=== PATIENT | female | born 1950 | race Caucasian/White ===

== ENCOUNTER 2022-07-20 13:13 | Day surgery (SDC) | payer MEDICARE, OTHER ==
[~2022-07-20] VITALS: Ht 160 cm; Wt 66.3 kg
[~2022-07-20 13:13] MED LIST: ASPI-989 PO; ASPIRIN 81 MG CHEWABLE TABLET ONE; DIAZEPAM 5 MG TABLET ONE; DiphenhydrAMINE HCL 50 MG CAPSULE ONE; LISI-894 PO; METF-1211 PO; SODIUM CHLORIDE 0.9% 1,000 ML IV ONE; SODIUM CHLORIDE 0.9% 1,000 ML ONE
[2022-07-20] MEDS ORDERED: DiphenhydrAMINE HCL 50 MG CAPSULE PO ONE (14:00)
[2022-07-20] MEDS ORDERED: DIAZEPAM 5 MG TABLET PO ONE (14:00)
[2022-07-20] MEDS ORDERED: ASPIRIN 81 MG CHEWABLE TABLET PO ONE (14:00)
[2022-07-20 14:17] LABS: GLUCOMETER DEV NAME(LOC) SDS.; GLUCOSE,POINT OF CARE 73 MG/DL (70-110)
[2022-07-20] MEDS ORDERED: SODIUM BICARBONATE 50 MEQ/50 ML VIAL ONE (15:00)
[2022-07-20] MEDS ORDERED: IOHEXOL 300 MG/ML 100 ML VIAL ONE (15:00)
[2022-07-20] MEDS ORDERED: MIDAZOLAM HCL 2 MG/2 ML VIAL ONE (15:00)
[2022-07-20] MEDS ORDERED: FentaNYL CITRATE PF 100 MCG/2 ML VIAL ONE (15:00)
[2022-07-20] MEDS ORDERED: DiphenhydrAMINE HCL 50 MG/ML VIAL ONE ×2 (15:00→15:07)
[2022-07-20] MEDS ORDERED: LIDOCAINE/PF 1% 30 ML VIAL ONE (15:00)
[2022-07-20] MEDS ORDERED: IOHEXOL 300 MG/ML 100 ML VIAL IARTER ONE (15:15)
[2022-07-20] MEDS ORDERED: DiphenhydrAMINE HCL 50 MG/ML VIAL IVP ONE (15:15)
[2022-07-20] MEDS ORDERED: FentaNYL CITRATE PF 100 MCG/2 ML VIAL IVP ONE (15:15)
[2022-07-20] MEDS ORDERED: HEPARIN SODIUM 1000 UNITS/NS 1,000 ML IARTER ONE (15:15)
[2022-07-20] MEDS ORDERED: MIDAZOLAM HCL 2 MG/2 ML VIAL IVP ONE (15:15)
[2022-07-20] MEDS ORDERED: LIDOCAINE 1% 30 ML/SOD BICARB 8.4% 4 ML SQ ONE (15:15)
== END 2022-07-20 18:55 | disposition home or self-care (01) ==
LOC: CATHLAB 13:13
PROVIDERS: ATTEND Internal Medicine Interventional Cardiology
DX: I35.0 Nonrheumatic aortic (valve) stenosis (principal); I10 Essential (primary) hypertension; Z82.49 Family history of ischemic heart disease and other diseases of the circulatory system; Z83.3 Family history of diabetes mellitus; Z91.041 Radiographic dye allergy status; Z79.899 Other long term (current) drug therapy; Z98.890 Other specified postprocedural states; Z90.710 Acquired absence of both cervix and uterus; G47.30 Sleep apnea, unspecified; Z86.73 Personal history of transient ischemic attack (TIA), and cerebral infarction without residual deficits
CPT/HCPCS: 93454; 82962; 93005; C1760; J1200; J3010; J3490 ×2; J2250; J7030; Q9967